=== PATIENT | male | born 1950 | race Caucasian/White ===

== ENCOUNTER 2016-09-18 12:24 | Day surgery (SDC) | payer OTHER ==
[~2016-09-18] VITALS: Ht 177.8 cm; Wt 85.3 kg
[~2016-09-18 12:24] MED LIST: 0.9% Sodium Chloride 1,000 ML IV SCH; Sodium Chloride LOK Flush 10 mL Syringe IV PRN; fentaNYL-PF 50 mCg/mL 2 mL Inj IVPUSH PRN
[2016-09-18] MEDS ORDERED: MULT-666 PO (13:10)
[2016-09-18] MEDS ORDERED: MILK1CAP3 PO (13:10)
[2016-09-18] MEDS ORDERED: LACT1CAP73 PO (13:10)
[2016-09-18] MEDS ORDERED: CETI10CA PO (13:10)
[2016-09-18] MEDS ORDERED: ASPI-973 PO (13:10)
[2016-09-18 13:11] VITALS: BP 142/86; PULSE 74; RESP 16; O2SAT 98
[2016-09-18] MEDS ORDERED: 0.9% Sodium Chloride 1,000 ML ONE (13:24)
[2016-09-18] MEDS ORDERED: fentaNYL-PF 50 mCg/mL 2 mL Inj ONE (13:27)
[2016-09-18 14:06] VITALS: BP 129/69; PULSE 71; RESP 14; O2SAT 96
[2016-09-18 14:16] VITALS: BP 128/66; PULSE 64; RESP 14; O2SAT 98
[2016-09-18 14:26] VITALS: BP 125/66; PULSE 76; RESP 16; O2SAT 98
--- NOTE | 2016-09-18 23:44 | ENDO ---
[address] [address] ENDOSCOPY PROCEDURE PATIENT: KANG PATRICIO : 1950 MR#: [id number] ADMIT: 09/18/2016 JOB ID: [id number] PRIMARY PROVIDER: Chang Shaw MD PROCEDURE: Colonoscopy with biopsies. INDICATIONS: A 65-year-old male who reports for an early repeat colonoscopy for exclusion of colon cancer or other pathology. The patient has had a recent change in bowel habit, characterized by diarrhea and rectal bleeding. EQUIPMENT: Epic![id number]. SEDATION: 5 mg Versed and 125 mcg fentanyl. COMPLICATIONS: None identified. BOWEL PREPARATION: Fair, adequate exam. PROCEDURE INFORMATION: After the risks and benefits were explained, written and verbal informed consent was obtained. The patient was brought into the endoscopy suite and placed into the left lateral decubitus position. Sedation was achieved using the above-stated medications with the addition of oxygen via nasal cannula. A digital rectal examination was accomplished. No pathology appreciated. The scope was introduced into the rectum and advanced under direct visualization to the level of the cecum, as identified by the appendiceal orifice and ileocecal valve. The terminal ileum was briefly accessed. The scope then slowly withdrawn to carefully examine the mucosa for any defects or lesions. Multiple direct views were made through the dentate line for exclusion of pathology. The colon was decompressed, the scope removed from the patient who tolerated the procedure well. FINDINGS: The patient had obvious proctitis as soon as we entered the rectum with the scope. This would be considered mild to moderate visually. The inflammatory effect was a little bit more intense in the sigmoid region and extended up to approximately 36 cm from the anal verge. From there, there was no evidence of any visual colitis through to the cecum. The terminal ileum appeared to be visually within normal limits. There were some diverticula in the left colon. Random biopsy was taken from the right colon, the sigmoid colon and rectum, and submitted separately for histopathologic analysis. ENDOSCOPIC DIAGNOSES: 1. Proctocolitis to 36 cm. 2. Diverticulosis. RECOMMENDATIONS: 1. Await histopathology. 2. The patient is commenced on Rowasa enemas each night and . 3. Probiotic therapy. 4. Hold off on aspirin temporarily. 5. Follow up in my office in 3-4 weeks.
== END 2016-09-18 23:59 | disposition home or self-care (01) ==
LOC: END 12:24
PROVIDERS: ATTEND Internal Medicine Gastroenterology
DX: K51.30 Ulcerative (chronic) rectosigmoiditis without complications (principal); K57.30 Diverticulosis of large intestine without perforation or abscess without bleeding; R19.7 Diarrhea, unspecified; K62.5 Hemorrhage of anus and rectum